=== PATIENT | male | born 1985 | race Caucasian/White ===

== ENCOUNTER 2017-02-27 13:38 | Emergency (ER) | payer SELFPAY ==
[2017-02-27 13:59] VITALS: BP 145/99
--- NOTE | 2017-02-27 14:48 | EDM.PDOCBH ---
ED HPI GENERAL MEDICAL PROBLEM - General Chief Complaint: Behavioral/Psych Stated Complaint: ANXIETY PROBLEMS Time Seen by Provider: 02/27/17 13:59 Source of Information: Reports: Patient History Limitations: Reports: No Limitations - History of Present Illness INITIAL COMMENTS - FREE TEXT/NARRATIVE: The patient presents with a possible anxiety attack. The patient has been having lots of relationship issues lately. He was driving to work today and he developed tightness in his chest like someone was hugging him, shortness of breath and nausea. This lasted a short time. He has no history of having this happen before. He has no medical problems and family history of medical problems. He denies fever, chills, cough, congestion, runny nose, abdominal pain, or vomiting. Onset: Sudden Duration: Minutes: Location: Reports: Chest Quality: Reports: Other (Tightness or squeezing) Severity: Moderate Improves with: Reports: None Worsens with: Reports: None Context: Reports: Other (He was driving to work) - Related Data Allergies Allergy/AdvReac Type Severity Reaction Status Date / Time No Known Allergies Allergy Verified 02/27/17 13:59 Home Meds: Home Meds LORazepam [Ativan] 1 mg PO Q8HR PRN #10 tablet 02/27/17 [Rx] Past Medical History - Past Health History Medical/Surgical History: Denies Medical/Surgical History Social & Family History - Tobacco Use Smoking Status *Q: Never Smoker Second Hand Smoke Exposure: No - Caffeine Use Caffeine Use: Reports: Coffee - Recreational Drug Use Recreational Drug Use: No ED ROS GENERAL - Review of Systems Review Of Systems: See Below Constitutional: Reports: No Symptoms HEENT: Reports: No Symptoms, Vision Change Cardiovascular: Reports: Chest Pain Endocrine: Reports: No Symptoms GI/Abdominal: Reports: Nausea. Denies: Abdominal Pain, Vomiting : Reports: No Symptoms Musculoskeletal: Reports: No Symptoms Skin: Reports: No Symptoms ED EXAM, BEHAVIORAL HEALTH - Physical Exam Exam: See Below Exam Limited By: No Limitations General Appearance: Alert, No Apparent Distress Ears: Normal External Exam Nose: Normal Inspection Head: Atraumatic, Normocephalic Neck: Normal Inspection Respiratory/Chest: No Respiratory Distress, Lungs Clear, Normal Breath Sounds Cardiovascular: Regular Rate, Rhythm, No Edema, No Murmur GI/Abdominal: Soft, Non-Tender, No Organomegaly, No Mass Back Exam: Normal Inspection Extremities: Normal Inspection EKG INTERPRETATION EKG Date: 02/27/17 Time: 14:46 Rhythm: NSR Rate (Beats/Min): 77 [place]: Normal P-Wave: Present QRS: Normal ST-T: Normal QT: Normal COURSE, BEHAVIORAL HEALTH COMP - Course Vital Signs: Last Vital Signs Temp 99.2 F 02/27/17 13:55 Pulse 90 02/27/17 13:55 Resp 18 02/27/17 13:55 BP 145/99 H 02/27/17 13:55 Pulse Ox 98 02/27/17 13:55 Orders, Labs, Meds: Active Orders 24 hr Category Date Time Status EKG 12 Lead [EKG Documentation Completion] [RC] STAT Care 02/27/17 14:31 Active Re-Assessment/Re-Exam: His EKG looks good. I feel this was a panic attack. He is scheduled to see a therapist in March. I will give him some ativan in the mean time if he has more problems. Departure - Departure Time of Disposition: 14:50 Disposition: Home, Self-Care 01 Condition: Good Clinical Impression: Anxiety - Discharge Information Prescriptions: LORazepam [Ativan] 1 mg PO Q8HR PRN #10 tablet PRN Reason: Anxiety Referrals: Cat Selby PA [Physician [employer]] - 1 Week Additional Instructions: Take the ativan as needed for any anxiety attacks. Follow up with your therapist or Cat Selby if you have any more problems. - My Orders Last 24 Hours: My Active Orders 02/27/17 14:31 EKG 12 Lead [EKG Documentation Completion] [RC] STAT - Assessment/Plan Last 24 Hours: My Active Orders 02/27/17 14:31 EKG 12 Lead [EKG Documentation Completion] [RC] STAT
== END 2017-02-27 15:04 | disposition home or self-care (01) ==
LOC: JD.ED 13:38
DX: F41.9 Anxiety disorder, unspecified (principal)
CPT/HCPCS: 93005; 99283; 99283-25